=== PATIENT | female | born 1955 | race African-American/Black ===

== ENCOUNTER 2019-07-04 18:01 | Emergency (ER) | payer BC ==
[~2019-07-04] VITALS: Ht 157.5 cm; Wt 74.4 kg
[2019-07-04 18:12] VITALS: BP 164/93
[2019-07-04] MEDS ORDERED: ORPHENADRINE CITRATE 60 MG/2 ML VIAL. IM ONE (18:45)
[2019-07-04] MEDS ORDERED: DEXAMETHASONE 4 MG TABLET PO ONE (18:45)
[2019-07-04 19:16] LABS: BILIRUBIN,URINE NEGATIVE (NEG); CLARITY,URINE CLEAR; COLOR,URINE YELLOW; NITRITE,URINE NEGATIVE (NEG); PROTEIN,URINE 100 mg/dL (NEG-TRACE); UROBILINOGEN,URINE 0.2 mg/dL (0.2 mg/dL)
[2019-07-04 19:29] LABS: SQUAMOUS EPITHELIAL CELL,UR MOD /LPF
[2019-07-04 19:30] LABS: BACTERIA,URINE FEW /HPF (0-FEW); YEAST,URINE PRESENT /HPF
[2019-07-04] MEDS ORDERED: PRED20TA PO (19:39)
[2019-07-04] MEDS ORDERED: ORPH100T PO (19:39)
--- NOTE | 2019-07-04 19:39 | PHYS DOC ---
Past Medical History Additional Past Medical Histor: NEUROPATHY, SARCOIDOSIS Additional Past Surgical Histo: R. ARM Alcohol Use: None Drug Use: None Adult General Chief Complaint Chief Complaint: BACK PAIN - NO INJURY HPI HPI Patient is a 64 year old [f__sex] who presents with [] Review of Systems Review of Systems Constitutional: Denies fever or chills Eyes: Denies redness or eye pain HENT: Denies nasal congestion or sore throat Respiratory: Denies cough or shortness of breath Cardiovascular: Denies chest pain or palpitations GI: Denies abdominal pain, nausea, or vomiting : Denies dysuria or hematuria Musculoskeletal: Denies back pain or joint pain Integument: Denies rash or skin lesions Neurologic: Denies headache, focal weakness or sensory changes Complete systems were reviewed and found to be within normal limits, except as documented in this note. Current Medications Current Medications Current Medications Medications (Trade) Dose Ordered Sig/Asaf Start Time Stop Time Status Last Admin Dose Admin Dexamethasone (Decadron) 10 mg 1X ONCE 07/04/19 18:45 07/04/19 18:46 DC 07/04/19 19:12 10 MG Lidocaine (Lidoderm) 1 patch 1X ONCE 07/04/19 20:00 07/04/19 20:01 DC 07/04/19 20:04 1 PATCH Orphenadrine Citrate (Norflex) 60 mg 1X ONCE 07/04/19 18:45 07/04/19 18:46 DC 07/04/19 19:12 60 MG Allergies Allergies Allergies Coded Allergies Type Severity Reaction Last Updated Verified morphine Allergy Unknown 07/04/19 Yes pseudoephedrine Allergy Unknown 07/04/19 Yes Physical Exam Physical Exam Constitutional: Well developed, well nourished, no acute distress, non-toxic appearance HENT: Normocephalic, atraumatic, oropharynx moist Eyes: PERRL, EOMI, conjunctiva normal, no discharge Neck: Normal range of motion, no tenderness, supple Cardiovascular: Heart rate normal, regular rhythm Lungs & Thorax: Bilateral breath sounds clear to auscultation, no wheezing Abdomen: Soft, no tenderness Skin: Warm, dry, no erythema, no rash Back: No tenderness, no CVA tenderness Extremities: No tenderness, ROM intact, no edema Neurologic: Alert and oriented X 3, normal motor function, normal sensory function, no focal deficits noted Psychologic: Affect normal, judgement normal, mood normal Current Patient Data Vital Signs Vital Signs Date Time Temp Pulse Resp B/P (MAP) Pulse Ox O2 Delivery O2 Flow Rate FiO2 07/04/19 18:12 98.1 73 20 164/93 (116) 98 Room Air 98.1 Lab Values Laboratory Tests Test 07/04/19 18:50 Urine Collection Type Unknown Urine Color Yellow Urine Clarity Clear Urine pH 6.0 Urine Specific [place] 1.015 Urine Protein 100 mg/dL (NEG-TRACE) Urine Glucose (UA) Negative mg/dL (NEG) Urine Ketones (Stick) Negative mg/dL (NEG) Urine Blood Negative (NEG) Urine Nitrite Negative (NEG) Urine Bilirubin Negative (NEG) Urine Urobilinogen Dipstick 0.2 mg/dL (0.2 mg/dL) Urine Leukocyte Esterase Negative (NEG) Urine RBC 1-2 /HPF (0-2) Urine WBC 1-4 /HPF (0-4) Urine Squamous Epithelial Cells Mod /LPF Urine Bacteria Few /HPF (0-FEW) Urine Yeast Present /HPF EKG EKG [] Radiology/Procedures Radiology/Procedures [] Course & Med Decision Making Course & Med Decision Making Pertinent Lab studies reviewed. (See chart for details) Patient stable for discharge with outpatient follow-up with PCP. Discussed findings and plan with patient and family, who acknowledge understanding and agreement. Dragon Disclaimer Dragon Disclaimer This electronic medical record was generated, in whole or in part, using a voice recognition dictation system. Departure Departure Impression: Primary Impression: Back pain Disposition: 01 HOME, SELF-CARE Condition: STABLE Referrals: MADELYN RACHEL MD (PCP) RONNIE GARZA MD Patient Instructions: Back Pain, Adult, [id number] Scripts Lidocaine (Lidocaine) 1 Each Adh..patch 1 EACH TP Q12HR PRN for PAIN, #6 PATCH Leave patch on for 12 hours then remove for next 12 hours before new patch placement. Prov: NANCY ALVAREZ DO 07/04/19 Orphenadrine Citrate (ORPHENADRINE CITRATE) 100 Mg Tablet.er 100 MG PO BID PRN for MUSCLE PAIN, #14 Prov: NANCY ALVAREZ DO 07/04/19 Prednisone (PREDNISONE) 20 Mg Tablet 2 TAB PO DAILY, #8 TAB Start this prescription tomorrow, Saturday07/05/19 Prov: NANCY ALVAREZ DO 07/04/19 Problem Qualifiers Primary Impression: Back pain Back pain location: low back pain Chronicity: acute Back pain laterality: left Sciatica presence: with sciatica Sciatica laterality: sciatica of left side Qualified Codes: M54.42 - Lumbago with sciatica, left side NANCY ALVAREZ DO Jul 04, 2019 19:39
[2019-07-04] MEDS ORDERED: LIDO1ADH63 TP (19:58)
[2019-07-04] MEDS ORDERED: LIDOCAINE (700MG/PATCH) PATCH. TD ONE (20:00)
== END 2019-07-04 20:08 | disposition home or self-care (01) ==
LOC: ER 18:01
DX: M54.42 Lumbago with sciatica, left side (principal); Z88.5 Allergy status to narcotic agent; Z88.8 Allergy status to other drugs, medicaments and biological substances
CPT/HCPCS: 81001; 96372; 99283; J2360; J8540

== ENCOUNTER 2021-03-02 20:05 | Emergency (ER) | payer BC ==
[~2021-03-02] VITALS: Ht 157.5 cm; Wt 77.2 kg
[~2021-03-02 20:05] MED LIST: LIDO1ADH63 TP; ORPH100T PO; PRED20TA PO
--- NOTE | 2021-03-02 21:51 | PHYS DOC ---
Past Medical History Past Medical History: High Cholesterol, Hypertension, Other Additional Past Medical Histor: NEUROPATHY, SARCOIDOSIS, chronic back pain, LUPUS Past Surgical History: Appendectomy, Cholecystectomy, Hysterectomy, Other Additional Past Surgical Histo: R. ARM Smoking Status: Never Smoker Alcohol Use: None Drug Use: None General Adult EDM: Chief Complaint: LOWEREXTREMITY INJURY HPI: HPI: Patient is a 66 year old male with history of hypertension who presents the ED today complaining of cat scratches to bilateral lower extremities that occurred today, patient got scratched by her friend's cats which are up-to-date with her shots. Review of Systems: Review of Systems: Constitutional: Denies fever or chills. [][] Musculoskeletal: Denies back pain or joint pain. [] Integument: Reports scratches to bilateral lower extremity from a cat Neurologic: Denies headache, focal weakness or sensory changes. [] Psychiatric: Denies depression or anxiety. [] Heart Score: C/O Chest Pain: N/A Risk Factors: Risk Factors: DM, Current or recent (<one month) smoker, HTN, HLP, family history of CAD, obesity. Risk Scores: Score 0 - 3: 2.5% MACE over next 6 weeks - Discharge Home Score 4 - 6: 20.3% MACE over next 6 weeks - Admit for Clinical Observation Score 7 - 10: 72.7% MACE over next 6 weeks - Early Invasive Strategies Current Medications: Current Medications Medications (Trade) Dose Ordered Sig/Asaf Start Time Stop Time Status Last Admin Dose Admin Ceftriaxone Sodium (Rocephin Im) 1 gm 1X ONCE 03/02/21 21:45 03/02/21 21:46 Diphtheria/ Tetanus/Acell Pertussis (ADACEL TDap SYRINGE) 0.5 ml ONCE ONCE 03/02/21 21:45 03/02/21 21:46 Lidocaine HCl (Xylocaine-Mpf 1% 2ml Vial) 2 ml 1X ONCE 03/02/21 21:45 03/02/21 21:46 Allergies: Allergies: Allergies Coded Allergies Type Severity Reaction Last Updated Verified morphine Allergy Unknown 07/04/19 Yes pseudoephedrine Allergy Unknown 07/04/19 Yes Physical Exam: PE: Constitutional: Well developed, well nourished, no acute distress, non-toxic appearance. [] Skin: Right benito with small amount of cat scratches, trace amount on the left calf Back: No tenderness, no CVA tenderness. [] Extremities: No tenderness, no cyanosis, no clubbing, ROM intact, no edema. [] Neurologic: Alert and oriented X 3, normal motor function, normal sensory function, no focal deficits noted. [] Psychologic: Affect normal, judgement normal, mood normal. [] Current Patient Data: Vital Signs: Vital Signs Date Time Temp Pulse Resp B/P (MAP) Pulse Ox O2 Delivery O2 Flow Rate FiO2 03/02/21 20:46 99.2 74 21 163/85 (111) 98 Room Air 99.2 EKG: EKG: [] Radiology/Procedures: Radiology/Procedures: [] Course & Med Decision Making: Course & Med Decision Making Pertinent Labs and Imaging studies reviewed. (See chart for details) This is a 66-year-old female patient presenting to the ED today with cat scratches on BLE that occurred today. Cats are update with their shots. Tetanus updated. Given Rocephin IM in the ED and discharged on Augmentin. Wound care instructions and return precautions provided Keven Disclaimer: Keven Disclaimer: This electronic medical record was generated, in whole or in part, using a voice recognition dictation system. Departure Departure Impression: Primary Impression: Cat scratch of right lower leg Qualified Codes: S80.811A - Abrasion, right lower leg, initial encounter; W55.03XA - Scratched by cat, initial encounter Additional Impression: Cat scratch of left lower leg Qualified Codes: S80.812A - Abrasion, left lower leg, initial encounter; W55.03XA - Scratched by cat, initial encounter Disposition: 01 HOME / SELF CARE / HOMELESS Condition: STABLE Referrals: MADELYN RACHEL MD (PCP) follow up in 1 week Patient Instructions: Cat Scratch Disease-Brief Additional Instructions: You were seen with cat scratches to bilateral lower extremities. Please take the prescribed antibiotics until completed. Please clean the areas with soap and water daily. You can apply Neosporin over the scratches. Follow-up with your doctor in 1 to 2 weeks, come back to the ED at any point symptoms worsen especially if you develop a fever, yellow drainage from the scratches or any other concerning symptoms. Scripts Ondansetron (ONDANSETRON ODT) 4 Mg Tab.rapdis 1 TAB PO PRN Q6-8HRS, #16 TAB Prov: MUTUNGA,FLORENCIO M GIS DATABASE ADMINISTRATOR 03/02/21 Hydrocodone Bit/Acetaminophen (HYDROCODONE-APAP 5-325 ) 1 Tab Tablet 1 TAB PO PRN Q6HRS PRN for PAIN, #10 TAB 0 Refills Prov: FLORENCIO KHAN APRN 03/02/21 Amoxicillin/Potassium Clav (AUGMENTIN 875-125 TABLET) 1 Each Tablet 1 TAB PO BID for 10 Days, #20 TAB 0 Refills Prov: FLORENCIO KHAN APRN 03/02/21 FLORENCIO KHAN APRN Mar 02, 2021 21:51
[2021-03-02] MEDS: cefTRIAXone IM 1 GM VIAL IM ONE (22:03)
[2021-03-02] MEDS: LIDOCAINE 1% PF 2 ML VIAL. INJ ONE (22:04)
[2021-03-02] MEDS: DIPH,PERTUSS(ACELL),TET VAC/PF 0.5 ML SYRINGE. VAX IM ONE (22:05)
[2021-03-02] MEDS ORDERED: AMOX1TAB61 PO (22:10)
[2021-03-02 22:15] VITALS: BP 135/78
[2021-03-02] MEDS ORDERED: HYDR-2761 PO (22:18)
[2021-03-02] MEDS ORDERED: ONDA4TAB12 PO (22:18)
[2021-03-02] MEDS ORDERED: NAPROXEN 500 MG TABLET ONE (22:23)
[2021-03-02] MEDS ORDERED: HYDROcodone/APAP 5/325MG 1 TAB TABLET ONE (22:23)
[2021-03-02] MEDS: HYDROcodone/APAP 5/325MG 1 TAB TABLET PO ONE (22:25)
[2021-03-02] MEDS: NAPROXEN 500 MG TABLET PO STA (22:26)
== END 2021-03-02 22:33 | disposition home or self-care (01) ==
LOC: ER 20:05
DX: S80.812A Abrasion, left lower leg, initial encounter (principal); S80.811A Abrasion, right lower leg, initial encounter; E78.00 Pure hypercholesterolemia, unspecified; I10 Essential (primary) hypertension; G89.29 Other chronic pain; Z90.49 Acquired absence of other specified parts of digestive tract; Z90.710 Acquired absence of both cervix and uterus; Z90.89 Acquired absence of other organs; Z98.890 Other specified postprocedural states; W55.03XA Scratched by cat, initial encounter; Y93.89 Activity, other specified; Y92.89 Other specified places as the place of occurrence of the external cause; Y99.8 Other external cause status
CPT/HCPCS: 90471; 90715; 96372; 99284; J0696; J3490

== ENCOUNTER 2021-03-06 15:31 | Emergency (ER) | payer BC ==
[~2021-03-06] VITALS: Ht 157.5 cm; Wt 77.3 kg
[~2021-03-06 15:31] MED LIST changes: +AMOX1TAB61 PO; +HYDR-2761 PO; +ONDA4TAB12 PO
[2021-03-06 17:30] VITALS: BP 184/106
--- NOTE | 2021-03-06 19:08 | PHYS DOC ---
Past Medical History Past Medical History: High Cholesterol, Hypertension, Other Additional Past Medical Histor: NEUROPATHY, SARCOIDOSIS, chronic back pain, LUPUS (FLORENCIO KHAN BOTTLE SELECTOR) Past Surgical History: Appendectomy, Cholecystectomy, Hysterectomy, Other Additional Past Surgical Histo: R. ARM (FLORENCIO KHAN BOTTLE SELECTOR) Smoking Status: Never Smoker Alcohol Use: None Drug Use: None (FLORENCIO KHAN BOTTLE SELECTOR) General Adult EDM: Chief Complaint: LOWER EXTREMITY SWELLING HPI: HPI: Patient is a 66 year old female with history of hypertension, high cholesterol, who presents to the ED today with swelling to the right lower extremity after having cat scratches 4 days ago. Patient was seen in the ED 4 days ago and was given Rocephin IM as well as Augmentin which she is still taking. Patient denies any fever, nausea vomiting, denies any drainage. (FLORENCIO KHAN BOTTLE SELECTOR) Review of Systems: Review of Systems: Constitutional: Denies fever or chills. [] Musculoskeletal: Denies back pain or joint pain. [] Integument: Reports right lower extremity swelling Neurologic: Denies headache, focal weakness or sensory changes. [] Psychiatric: Denies depression or anxiety. [] (FLORENCIO KHAN BOTTLE SELECTOR) Heart Score: C/O Chest Pain: N/A Risk Factors: Risk Factors: DM, Current or recent (<one month) smoker, HTN, HLP, family history of CAD, obesity. Risk Scores: Score 0 - 3: 2.5% MACE over next 6 weeks - Discharge Home Score 4 - 6: 20.3% MACE over next 6 weeks - Admit for Clinical Observation Score 7 - 10: 72.7% MACE over next 6 weeks - Early Invasive Strategies (FLORENCIO KHAN BOTTLE SELECTOR) Allergies: Allergies: Allergies Coded Allergies Type Severity Reaction Last Updated Verified morphine Allergy Unknown 07/04/19 Yes pseudoephedrine Allergy Unknown 07/04/19 Yes (FLORENCIO KHAN BOTTLE SELECTOR) Physical Exam: PE: Constitutional: Well developed, well nourished, no acute distress, non-toxic appearance. []] Skin: Right lower extremity with +1 edema, there is a couple scabbed up cat scratches that are healing very well. Very trace redness noted on some, no streaking, no warmth, +2 right pedal pulse. Cap refill less than 2 seconds of right lower extremity, negative Homans' sign to the right lower extremity Back: No tenderness, no CVA tenderness. [] Extremities: No tenderness, no cyanosis, no clubbing, ROM intact, Neurologic: Alert and oriented X 3, normal motor function, normal sensory function, no focal deficits noted. [] Psychologic: Affect normal, judgement normal, mood normal. [] (FLORENCIO KHAN APRN) Current Patient Data: Vital Signs: Vital Signs Date Time Temp Pulse Resp B/P (MAP) Pulse Ox O2 Delivery O2 Flow Rate FiO2 03/06/21 17:30 97.9 68 18 184/106 (132) 97 97.9 (FLORENCIO KHAN APRN) EKG: EKG: [] (FLORENCIO KHAN APRN) Radiology/Procedures: Radiology/Procedures: [] (FLORENCIO KHAN APRN) Course & Med Decision Making: Course & Med Decision Making Pertinent Labs and Imaging studies reviewed. (See chart for details) This is a 66-year-old female patient presenting to the ED today with right lower extremity swelling after having cat scratch 4 days ago. Patient was seen in the ED, was given Rocephin IM and discharged in a demented. The cat appear to be healing very well, venous Doppler of the right lower extremity is negative. She was discharged home. (FLORENCIO KHAN APRN) Dragon Disclaimer: Dragon Disclaimer: This electronic medical record was generated, in whole or in part, using a voice recognition dictation system. (FLORENCIO KHAN BOTTLE SELECTOR) Departure Departure Impression: Primary Impression: Cat scratch of right lower leg Qualified Codes: S80.811D - Abrasion, right lower leg, subsequent encounter; W55.03XD - Scratched by cat, subsequent encounter Additional Impression: Edema, lower extremity Disposition: HOME / SELF CARE / HOMELESS Condition: STABLE Referrals: NO PCP (PCP) follow up in one week with your doctor Patient Instructions: Cat Scratch Disease-Brief Additional Instructions: You were evaluated in the emergency room, your right lower extremity does not have a blood clot. Please continue taking the antibiotics and keeping the affected areas clean and dry. Try to elevate your right lower extremity above your heart when resting. You can consider wearing compression stockings. Follow-up with your doctor in a week Scripts Diclofenac Potassium (DICLOFENAC POTASSIUM) 50 Mg Tablet 1 TAB PO BID, #10 TAB 0 Refills Prov: FLORENCIO KHAN BOTTLE SELECTOR 03/06/21 Hydrocodone Bit/Acetaminophen (HYDROCODONE-APAP 5-325 ) 1 Tab Tablet 1 TAB PO PRN Q6HRS PRN for PAIN, #10 TAB 0 Refills Prov: FLORENCIO KHAN BOTTLE SELECTOR 03/06/21 Attending Signature Attending Signature I have participated in the care of this patient and I have reviewed and agree wi th all pertinent clinical information above including history, exam, and recommendations. (ZORAIDA YOU MD) FLORENCIO KHAN APRN Mar 06, 2021 19:08 ZORAIDA YOU MD Mar 07, 2021 06:00
[2021-03-06] MEDS ORDERED: DICL50TA2 PO (19:14)
[2021-03-06] MEDS ORDERED: HYDR-2761 PO (19:14)
--- NOTE | 2021-03-06 19:28 | RAD ---
Right lower extremity venous ultrasound, : History: Right lower leg swelling, calf scratch Duplex evaluation including grayscale, color flow and spectral Doppler analysis was performed. The f emoral and popliteal veins show no filling defects to suggest DVT. The visualized calf veins are un remarkable. There is soft tissue edema in the right lower leg. IMPRESSION: 1. There is no sonographic evidence of deep vein thrombosis in the right lower extremity. Electronically signed by: Addi Slater MD (03/06/2021 7:26 PM) [facility]
== END 2021-03-06 19:25 | disposition home or self-care (01) ==
LOC: ER 15:31
DX: S80.811A Abrasion, right lower leg, initial encounter (principal); R60.0 Localized edema; E78.00 Pure hypercholesterolemia, unspecified; I10 Essential (primary) hypertension; G89.29 Other chronic pain; Z90.89 Acquired absence of other organs; Z90.49 Acquired absence of other specified parts of digestive tract; Z90.710 Acquired absence of both cervix and uterus; W55.03XA Scratched by cat, initial encounter; Y93.89 Activity, other specified; Y92.89 Other specified places as the place of occurrence of the external cause; Y99.8 Other external cause status
CPT/HCPCS: 93971; 99284